=== PATIENT | male | born 1970 | race Caucasian/White ===

== ENCOUNTER → 2024-12-18 | Outpatient (CLI) | payer BC ==
[2024-12-18 13:10] LABS: BASO # 0.1 10^3/uL (0.0-0.2); BASO % 1.3 % (0.0-1.0); EOS # 0.1 10^3/uL (0.0-0.5); EOS % 2.1 % (0.0-3.0); LYMPH # 1.6 10^3/uL (1.5-5.0); LYMPH % 26.4 % (24.0-44.0); MONO # 0.5 10^3/uL (0.0-0.8); MONO % 8.5 % (2.0-8.0); NEUTROPHILS # 3.8 10^3/uL (1.5-8.5); NEUTROPHILS % 61.2 % (36.0-66.0); PLATELET COUNT, AUTOMATED 148 10^3/uL (150-450)
[2024-12-18 13:44] LABS: ALT/SGPT 44 U/L (7.0-40); AST/SGOT 39 U/L (<34); CALCIUM LEVEL 9.7 MG/DL (8.5-10.1); CARBON DIOXIDE LEVEL 29 MMOL/L (20-31); CHLORIDE LEVEL 104 MMOL/L (98-107); CREATININE FOR GFR 1.02 MG/DL (0.70-1.30); GLOMERULAR FILTRATION RATE 86.3 (>56); POTASSIUM SERUM 4.8 MMOL/L (3.5-5.1); RHEUMATOID FACTOR QUANT < 3.5 IU/ML (<14); SODIUM LEVEL 143 MMOL/L (136-145)
[2024-12-18 13:45] LABS: ESTIMATED AVERAGE GLUCOSE 97.0 MG/DL (60-110); FREE T4 1.00 NG/DL (0.89-1.76)
[2024-12-19 22:37] LABS: CARDIOLIPIN IGA ANTIBODY < 2.0 APL-U/mL (<20.0); CARDIOLIPIN IGG ANTIBODY < 2.0 GPL-U/mL (<20.0); CARDIOLIPIN IGM ANTIBODY 2.4 MPL-U/mL (<20.0)
[2024-12-22 01:17] LABS: PROTEIN C FUNCTIONAL ACTIVITY 76 % normal (70-180); PROTEIN S FUNCTIONAL ACTIVITY 80 % normal (70-150)
[2024-12-22 15:32] LABS: HOMOCYST(E)INE SERUM 15.9 umol/L (< or = 15.2)
[2024-12-23 21:42] LABS: FACTOR V LEIDEN FOR MEDINET NEGATIVE
[2024-12-23 23:31] LABS: FACTOR II PROTHROMBIN GENE AN NEGATIVE
[2024-12-24 01:46] LABS: ANTI THROMBIN 3 ANTIGEN IMMUNO 92 % normal (80-120); ANTI THROMBIN 3 FUNCT ACTIVITY 108 % normal (80-135)
== END ==
LOC: M PLALAB 11:46
PROVIDERS: ATTEND Psychiatry & Neurology Neurology
DX: E11.9 Type 2 diabetes mellitus without complications (principal); E07.9 Disorder of thyroid, unspecified; Z86.73 Personal history of transient ischemic attack (TIA), and cerebral infarction without residual deficits